=== PATIENT | male | born 2000 | race Caucasian/White ===

== ENCOUNTER 2018-07-16 16:19 | Emergency (ER) | payer OTHER ==
[2018-07-16] MEDS ORDERED: Morphine 4 MG/ML VIAL (1 ml) 4 MG/ML VIAL IV PRN (16:29)
--- NOTE | 2018-07-16 16:37 | ED ---
Lower Extremity - HPI Summary HPI Summary: This patient is a 17 year old male brought in by ambulance to [facility] with a chief complaint of bilateral ankle pain since 2 hours ago. Patient states that he was jumping on a trampoline and rolled his ankles. Patients ankles are swollen and patient is unable to bear weight. The pain is rated 9/10 in severity. Symptoms aggravated by nothing. Symptoms alleviated by nothing. Patient denies neck pain. - History of Current Complaint Stated Complaint: POSS ANKLE SPRAIN PER EMS Hx Obtained From: Patient Mechanism Of Injury: Twisted Onset of Pain: Immediate Onset/Duration: Hours Severity Initially: Moderate Severity Currently: Moderate Pain Intensity: 9 Pain Scale Used: 0-10 Numeric Timing: Constant Location: Is Discrete @ - bilateral ankles Associated Signs And Symptoms: Positive: Swelling Aggravating Factor(s): Nothing Alleviating Factor(s): Nothing Able to Bear Weight: No - Allergies/Home Medications Allergies/Adverse Reactions: Allergies Allergy/AdvReac Type Severity Reaction Status Date / Time No Known Allergies Allergy Verified 07/16/18 16:30 Home Medications: Home Medications NK [No Home Medications Reported] 07/16/18 [History Confirmed 07/16/18] PMH/Surg Hx/FS Hx/Imm Hx Previously Healthy: Yes Opthamlomology History: Denies: Hx Legally Blind EENT History: Denies: Hx Deafness Infectious Disease History: No Infectious Disease History: Denies: Traveled Outside the [place] in Last 30 Days - Family History Known Family History: Positive: Hypertension - Social History Occupation: Student Lives: With Family Alcohol Use: None Hx Substance Use: No Substance Use Type: Reports: None Hx Tobacco Use: No Smoking Status (MU): Never Smoked Tobacco Review of Systems Negative: Fever Musculoskeletal: Negative - Neck pain Positive: Other - bilateral ankle pain/swelling All Other Systems Reviewed And Are Negative: Yes Physical Exam - Summary Physical Exam Summary: Constitutional: Well-developed, Well-nourished, Alert. Skin: Warm, Dry HENT: Normocephalic; Atraumatic Eyes: Conjunctiva normal Neck: Musculoskeletal ROM normal neck. Cardio: Rhythm regular, rate normal, Heart sounds normal; Intact distal pulses; The pedal pulses are 2+ and symmetric. Radial pulses are 2+ and symmetric. Pulmonary/Chest wall: Effort normal. Abd: Soft, Musculoskeletal: Tenderness and swelling at bilateral lateral malleoli of the ankle. Pain with ROM Lymph: Normal Neuro: Alert, Oriented x3 Psych: Mood and affect Normal Triage Information Reviewed: Yes Vital Signs On Initial Exam: Initial Vitals Temp Pulse Resp BP Pulse Ox 98.8 F 93 18 177/98 99 07/16/18 16:27 07/16/18 16:27 07/16/18 16:27 07/16/18 16:27 07/16/18 16:27 Vital Signs Reviewed: Yes Diagnostics - Vital Signs Vital Signs Temp Pulse Resp BP Pulse Ox 07/16/18 16:27 98.8 F 93 18 177/98 99 - Laboratory Lab Statement: Any lab studies that have been ordered have been reviewed, and results considered in the medical decision making process. - Radiology Ankle XR Radiology Interpretation Completed By: Radiologist Summary of Radiographic Findings: Ankle XR reveals, per radiologist, IMPRESSION : 1. BILATERAL ANKLE SOFT TISSUE SWELLING. 2. DISPLACED AVULSION FRACTURE FRAGMENT LATERAL TO THE DISTAL LEFT FIBULA. 3. PROBABLE SMALL OSTEOCHONDRAL FRACTURE OF THE LATERAL TALUS OF THE LEFT ANKLE. THIS CAN BE FURTHER EVALUATED WITH MR IMAGING. ED physician has reviewed this radiology report. Lower Extremity Course/Dx - Course Course Of Treatment: This patient is a 17 year old male brought in by ambulance to [facility] with a chief complaint of bilateral ankle pain since 2 hours ago. Patient states that he was jumping on a trampoline and rolled his ankles. Patients ankles are swollen and patient is unable to bear weight. Ankle XR reveals, per radiologist, IMPRESSION: 1. BILATERAL ANKLE SOFT TISSUE SWELLING. 2. DISPLACED AVULSION FRACTURE FRAGMENT LATERAL TO THE DISTAL LEFT FIBULA. 3. PROBABLE SMALL OSTEOCHONDRAL FRACTURE OF THE LATERAL TALUS OF THE LEFT ANKLE. THIS CAN BE FURTHER EVALUATED WITH MR IMAGING. ED physician has reviewed this radiology report. Bloodwork Obtained. Urinalysis Obtained. In the ED course the patient was given Morphine. The pt is hemodynamically stable, alert and oriented x3. We discussed patient care with Dr. Souza (Ortho) at 1951 and they recommended bilateral crutches, boot, and attempt to ambulate, before following up as outpatient. The patient was able to ambulate in the ED with a walker. Patient will be discharged with a dx of left ankle fracture, right ankle sprain. Patient is advised to follow up with orthopedist as instructed. The patient is agreeable with this plan. - Diagnoses Provider Diagnoses: Right ankle sprain, Closed left ankle fracture - Physician Notifications Discussed Care Of Patient With: Zhanna Souza - Ortho Time Discussed With Above Provider: 19:52 - We discussed patient care with Dr. Souza (Ortho) at 1952 and they recommended bilateral crutches, boot, and attempt to ambulate, before following up as outpatient. Discharge - Sign-Out/Discharge Documenting (check all that apply): Patient Departure Patient Received Moderate/Deep Sedation with Procedure: No - Discharge Plan Condition: Stable Disposition: HOME Patient Education Materials: Ankle Fracture (ED), Ankle Sprain (ED) Print Language: SINHALA Forms: *Work Release Referrals: Keenan GARRISON,Nic Parrish [Primary Care Provider] - Zhanna Souza MD [Medical Doctor] - - Billing Disposition and Condition Condition: STABLE Disposition: Home - Attestation Statements Document Initiated by Patriciae: Yes Documenting Scribe: Axel Perez Provider For Whom Scribe is Documenting (Include Credential): Shawna Yi MD Scribe Attestation: Axel Mendez, scribed for Shawna Burciaga MD on 07/16/18 at 2225. Scribe Documentation Reviewed: Yes Provider Attestation: The documentation as recorded by the Axel nugent accurately reflects the service I personally performed and the decisions made by , Shawna Burciaga MD Status of Scribe Document: Viewed
[2018-07-16 22:49] VITALS: BP 161/87
== END 2018-07-16 22:49 | disposition home or self-care (01) ==
LOC: ED 16:19
DX: S82.832A Other fracture of upper and lower end of left fibula, initial encounter for closed fracture (principal); S93.401A Sprain of unspecified ligament of right ankle, initial encounter; X50.1XXA Overexertion from prolonged static or awkward postures, initial encounter; Y93.44 Activity, trampolining
CPT/HCPCS: 96374; 99282